=== PATIENT | male | born 1970 | race Caucasian/White ===

== ENCOUNTER → 2021-11-18 08:31 | Outpatient (CLI) | payer OTHER, SELFPAY ==
--- NOTE | 2021-11-18 | DI.MRI.S_ITS ---
PROCEDURE: MR WRIST LT W CON INDICATIONS: LEFT WRIST PAIN TECHNIQUE: After the administration of 3-4 mL of dilute intra-articular Gadolinium contrast into the radiocarpal compartment, coronal T1 spin echo with fat saturation and T2 fast spin echo with fat saturation, axial T1 spin echo and T2 fast spin echo with fat saturation, sagittal T1 spin echo with and without fat saturation through the wrist. COMPARISON: [facility] [place], CR, XR WRIST 3+ VIEWS LEFT, 11/02/2021, 8:26. [facility], , [place] WRIST INJECTION MR/CT LT, 11/18/2021, 9:54. FINDINGS: Image quality: Excellent. Bones and cartilage: No acute trabecular bone injury. Postsurgical changes with micrometallic artifact are seen involving the scaphoid with mild chronic osseous irregularity. Additional metallic susceptibility artifact is seen within the hamate. Chronic irregularity of the distal radius is seen with marginal osteophyte formation and overlying cartilage irregularity. Multiple ossified loose bodies are seen surrounding the radiocarpal joint. The largest measures 8 mm along the volar wrist and there is a 7 mm ossification along the dorsal radial wrist. Intermediate signal intensity material is also seen within the joint space that may represent synovial hypertrophy. A type 2 lunate is seen without significant cartilage loss at the hamatolunate articulation. Carpal ligaments: There is partial tearing of the membranous and volar portions of the scapholunate ligament. Some dorsal fibers appear to remain in continuity. Radiocarpal contrast material communicates with the midcarpal joint space. No definite disruption of the lunotriquetral ligament is seen. On sagittal images, the pisohamate ligament appears intact. Triangular fibrocartilage complex: There is high-grade partial-thickness tearing of the central triangle fibrocartilage disc. No radiocarpal contrast material is seen within the distal radial ulnar joint space. Tendons and soft tissues: The carpal tunnel structures appear normal, including the median nerve. The ulnar nerve appears normal within Guyon's canal. There is mild tenosynovitis of the extensor carpi ulnaris tendon. A small amount of T1 hypointense fluid within the extensor pollicis longus tendon sheath may be related to the arthrogram injection or tenosynovitis. Similar fluid is seen within the 4th extensor compartment tendon sheaths. The remaining extensor tendon compartments demonstrate normal morphology, without pathologic tendon sheath fluid. No soft tissue ganglion cysts. IMPRESSION: 1. Chronic irregularity of the scaphoid is most likely secondary to prior trauma and prior surgery. No acute trabecular bone injury. 2. Degenerative changes at the radiocarpal joint with partial-thickness cartilage loss and marginal osteophyte formation. Multiple ossified intra-articular loose bodies are seen within the radiocarpal joint space. 3. Full-thickness tearing of the membranous and volar portions of the scapholunate ligament. Some of the dorsal band fibers appear intact. 4. High-grade partial-thickness tearing of the central triangle fibrocartilage disc. No distal radioulnar joint effusion. 5. Mild extensor carpi ulnaris tendinosis. 6. Small amount of fluid in the 2nd, 3rd, and 4th extensor compartments may be secondary to tenosynovitis or related to the arthrogram injection. Dictated by: Raad Azul M.D. on 11/18/2021 at 10:16 Approved by: Raad Azul M.D. on 11/18/2021 at 10:37
--- NOTE | 2021-11-18 | DI.RAD.S_ITS ---
PROCEDURE: [place] WRIST INJECTION MR/CT LT INDICATIONS: LEFT WRIST PAIN COMPARISON: [facility], MR, MR WRIST LT W CON, 11/18/2021, 9:09. TECHNIQUE: After informed consent had been obtained, the wrist was examined fluoroscopically, and a site chosen for injection of the radiocarpal compartment from a dorsal approach. Skin was prepped and draped in a sterile fashion and 1% lidocaine infiltrated from the skin down to the articular surface. A hypodermic needle was then introduced into the articular space and a modest amount of contrast medium was instilled confirming intra-articular needle tip placement. This was followed by approximately 4 mL of a dilute gadolinium solution. Needle was removed and dressing was applied. The patient experienced no complications throughout the procedure and left the fluoroscopic suite in no apparent distress. FINDINGS: A single fluoroscopic spot image demonstrates intra-articular location to injected iodinated contrast. IMPRESSION: Successful fluoroscopic-guided administration of dilute Gadolinium solution for wrist MR arthrogram. Dictated by: Krishan French M.D. on 11/18/2021 at 11:20 Approved by: Krishan French M.D. on 11/18/2021 at 11:20
== END ==
PROVIDERS: Referring Provider Orthopaedic Surgery; Visit Provider Orthopaedic Surgery
DX: S63.592A Other specified sprain of left wrist, initial encounter (principal); M24.032 Loose body in left wrist; M25.532 Pain in left wrist
CPT/HCPCS: 20605; 73222; 76000

== ENCOUNTER → 2022-06-21 07:58 | Outpatient (CLI) | payer OTHER, SELFPAY | PROVIDERS: Referring Provider Orthopaedic Surgery; Visit Provider Orthopaedic Surgery | DX: S62.025 Nondisplaced fracture of middle third of navicular [scaphoid] bone of left wrist (principal) ==

== ENCOUNTER → 2022-07-05 11:24 | Outpatient (CLI) | payer OTHER, SELFPAY ==
--- NOTE | 2022-07-05 | DI.RAD.S_ITS ---
PROCEDURE: [place] WRIST INJECTION MR/CT LT INDICATIONS: LEFT WRIST PAIN COMPARISON: [facility] [place], CR, XR WRIST 3+ VIEWS LEFT, 05/24/2022, 8:56. TECHNIQUE: After informed consent had been obtained, the wrist was examined fluoroscopically, and a site chosen for injection of the radiocarpal compartment from a dorsal approach. Skin was prepped and draped in a sterile fashion and 1% lidocaine infiltrated from the skin down to the articular surface. A hypodermic needle was then introduced into the articular space and a modest amount of contrast medium was instilled confirming intra-articular needle tip placement. This was followed by approximately 4 mL of a dilute gadolinium solution. Needle was removed and dressing was applied. The patient experienced no complications throughout the procedure and left the fluoroscopic suite in no apparent distress. FINDINGS: A single fluoroscopic spot image demonstrates intra-articular location to injected iodinated contrast. IMPRESSION: Successful fluoroscopic-guided administration of dilute Gadolinium solution for wrist MR arthrogram. Dictated by: Vonda Monzon M.D. on 07/05/2022 at 13:28 Approved by: Vonda Monzon M.D. on 07/05/2022 at 13:28
--- NOTE | 2022-07-05 | DI.MRI.S_ITS ---
PROCEDURE: MR WRIST LT W CON INDICATIONS: LEFT WRIST PAIN TECHNIQUE: After the administration of 3-4 mL of dilute intra-articular Gadolinium contrast into the radiocarpal compartment, coronal T1 spin echo with fat saturation and T2 fast spin echo with fat saturation, axial T1 spin echo and T2 fast spin echo with fat saturation, sagittal T1 spin echo with and without fat saturation through the wrist. COMPARISON: [facility] [place], CR, XR WRIST 3+ VIEWS LEFT, 05/24/2022, 8:56. [facility], , MR WRIST LT W CON, 11/18/2021, 9:09. FINDINGS: Image quality: Excellent. Bones and cartilage: Signal abnormality and susceptibility artifacts involving distal portion of scaphoid is again seen likely represent and old injury and postsurgical changes in this area. No evidence of osteonecrosis. 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 Susceptibility artifact is also noted involving distal portion of hamate suggest clinical correlation. No acute fracture or dislocation. No gross marrow edema. Multiple intra-articular loose bodies are again seen adjacent to radiocarpal joint with the largest 1 measures up to 9 x 7 mm in size over dorsal aspect of radial styloid tip unchanged from prior study. Previously described 8 millimeter loose body in volar aspect of wrist now measures 5 x 4 mm in size. Carpal ligaments: Again noted is full-thickness tear involving membranous and volar components of scapholunate ligament with gadolinium extravasation into the mid-carpal compartment. Lunotriquetral ligament is intact. The radioscaphocapitate and radiolunotriquetral ligaments appear intact. The arcuate ligament and short radiolunate ligament also appear normal. The dorsal intercarpal and radiotriquetral ligaments appear intact. On sagittal images, the pisohamate ligament appears intact. Triangular fibrocartilage complex: Signal abnormality involving triangular fibrocartilage near its ulnar insertion is seen. No gadolinium extravasation into the distal radioulnar joint. The adjacent meniscal homolog appears normal. The ulnar collateral ligament appears intact. The extensor carpi ulnaris tendon is normal in location and morphology. Tendons and soft tissues: The carpal tunnel structures appear normal, including the median nerve. The ulnar nerve appears normal within Guyon's canal. All six extensor tendon compartments demonstrate normal morphology, without pathologic tendon sheath fluid. No soft tissue ganglion cysts. IMPRESSION: 1. Postsurgical changes are noted in wrist joints with likely old injury and prior surgery involving distal portion of scaphoid unchanged from prior study. No marrow edema. No acute fracture or dislocation. 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 No evidence of osteonecrosis. 2. Multiple sub centimeter intra-articular loose bodies are again seen unchanged from previous study. 3. Full-thickness tear involving membranous and volar portion of scapholunate ligament unchanged from prior study. 4. Signal abnormality involving mid to ulnar periphery of triangular fibrocartilage which may represent partial-thickness tear. No contrast extravasating into distal radial ulnar joint. 5. Extensor and flexor tendons are grossly intact on the current study. Dictated by: Jeremie Pacheco M.D. on 07/05/2022 at 15:29 Approved by: Jeremie Pacheco M.D. on 07/05/2022 at 16:41
== END ==
PROVIDERS: Referring Provider Orthopaedic Surgery; Visit Provider Orthopaedic Surgery
DX: S63.592A Other specified sprain of left wrist, initial encounter (principal); M18.12 Unilateral primary osteoarthritis of first carpometacarpal joint, left hand; S62.025 Nondisplaced fracture of middle third of navicular [scaphoid] bone of left wrist
CPT/HCPCS: 20605; 73222; 76000

== ENCOUNTER → 2022-07-26 13:17 | Outpatient (CLI) | payer OTHER, SELFPAY ==
[2022-07-26 13:09] LABS: COVID19 -Nasal RAPID Negative (Negative)
== END ==
PROVIDERS: Referring Provider Orthopaedic Surgery; Visit Provider Orthopaedic Surgery
DX: Z20.822 Contact with and (suspected) exposure to COVID-19 (principal)
CPT/HCPCS: 87635; C9803

== ENCOUNTER 2022-07-29 10:41 | Day surgery (SDC) | payer OTHER, SELFPAY ==
[2022-07-26 08:43] VITALS: BMI 41.5
[2022-07-29] VITALS (7 sets, daily range): BP systolic 141–170; BP diastolic 81–98; PULSE 71–88; RESP 15–22; TEMP 36.3–37; O2SAT 92–98; BMI 41.5
[2022-07-29] MEDS: LACTATED RINGERS 1,000 ML 42 ML IV (11:32)
--- NOTE | 2022-07-29 13:02 | PM.PREOP ---
Pre-operative Note Interval Note History & Physical reviewed/Exam performed by Physician: Yes Changes to H&P: No
[2022-07-29] MEDS: CEFAZOLIN 2 GM/100 ML PREMIX 100 ML IV (14:03)
--- NOTE | 2022-07-29 14:27 | SUR.OPER ---
Supine on padded OR bed, head on pillow, right arm secured on padded arm boards at <90 degrees abduction,left arm on arm table under control of surgeon, legs uncrossed, safety belt at thigh, tape over blanket over lower legs.
[2022-07-29] MEDS: BUPIVACAINE 0.5% W/ EPI (PF) 30 ML VIAL INJ (14:34)
--- NOTE | 2022-07-29 15:12 | P.OP_ITS ---
Operative Date/Time/Diagnoses Date of procedure: 07/29/22 Time of procedure: 14:00 Pre-op diagnosis: Left scapholunate ligament injury Post-op diagnosis: same Procedure & Clinicians Procedure: Left scapholunate ligament reconstruction as well as removal of loose body Same procedure as scheduled: Yes Indications: Scapholunate ligament injury left Surgeon: Derek Holm Click Yes if Unassisted: Yes Anesthesia Type: General Operative Notes Findings: No sign of any diastasis dorsally. Signs of an injury to the membranous and volar portion of the ligament no significant signs of injury to the dorsal portion. Closure Type: primary Applied: implant(s) (Three Arthrex anchors) Tourniquet time (min): 45 Procedure in detail: On date of service, patient was met in the holding area where his operative site was signed and witnessed by the OR staff. The surgery is once again discussed with the patient in remaining questions or concerns he had were answered fully. Patient was taken back to the operating theater and placed on the operating table in a supine position. Great care was taken to ensure that all bony prominences were appropriately padded. A well-padded tourniquet was placed up along the upper extremity. Time-out was performed verifying patient's name, pr ocedure, and operative site. The limb was prepped and draped in the normal sterile fashion. An Esmarch was used to exsanguinate the limb the tourniquet was turned up to 250 mm of mercury. Longitudinal incision was made. The incision was ulnar to the Nusrat's tubercle. It was centered over the radiocarpal joint. Fifteen blade was used to incise through skin and fascial tissue. Sharp dissection was continued with a 15 blade until the extensor mechanism was identified. Branches of the superficial radial nerve were identified and protected as well as branches coming off ulnarly. Once we had the extensor mechanism identified and was split allowing a release of the EPL tendon. This was also done ulnarly opening up 4th extensor compartment and then done radially opening up the 2nd extensor compartment. This allowed us to retract the extensor tendons. Next, the radiocarpal joint was opened preserving the carpal ligaments. This gave us good visualization of the scapholunate interval. There was still an intact dorsal ligament of the scapholunate. But no sign of any radiocarpal arthritic process. There was no sign of any DISI deformity or any significant diastasis. Next, 3 guidewires were placed 1 in the lunate and 2 in the scaphoid 1 by the scapholunate interval and then 1 very distally. C-arm used to verify reduction of the scapholunate interval as well as guidewire positioning. Once we were satisfied with the positioning cannulated drill was used to drill over the 3 guidewires. The bony hole tunnels were then copiously irrigated removing any remaining tissue. The suture tape was tenodesed into the 1st hole in the scaphoid. Then under tension this was then placed into the 2nd hole into the lunate going across the scapholunate interval providing a solid repair of the scapholunate interval. Next, the suture material were then brought up to the distal hole into the scaphoid to once again help keep the scaphoid from falling into flexion. C-arm was brought in to verify maintenance of reduction. There was no gapping at the scapholunate interval once those K-wires were removed. We were able to flex and extend the wrist with no abnormal motion of the scapholunate interval been no sign of any diastasis. Good signs of a solid repair of the scapholunate interval. The wound was then copiously irrigated. The capsule was closed and repaired using 3-0 FiberWire. The extensor mechanism was closed with Vicryl recreating the 4th extensor compartment as well as the 3rd and 2nd extensor compartments. The rest of the wound was closed in layered fashion. Patient's hand and arm was cleaned dried and dressed. Patient was placed into a splint and taken to the PACU in stable condition. Complications: none Post-operative Condition: stable Disposition: Acute Care Plan for aftercare: Patient will be immobilized for a total of 6 weeks.
== END 2022-07-29 16:09 | disposition home or self-care (01) ==
PROVIDERS: Referring Provider Orthopaedic Surgery; Visit Provider Orthopaedic Surgery
PROC: (CPT 25320; principal; 2022-07-29 12:15)
DX: S62.025D Nondisplaced fracture of middle third of navicular [scaphoid] bone of left wrist, subsequent encounter for fracture with routine healing (principal); S63.095D Other dislocation of left wrist and hand, subsequent encounter; M24.132 Other articular cartilage disorders, left wrist; V29.99XD Rider (driver) (passenger) of other motorcycle injured in unspecified traffic accident, subsequent encounter; I10 Essential (primary) hypertension; G47.30 Sleep apnea, unspecified
CPT/HCPCS: 25320; C1713; J0330; J0690; J1100; J2250; J2405; J2704; J3010